=== PATIENT | male | born 1955 | race Caucasian/White ===

== ENCOUNTER 2016-07-09 09:24 | Emergency (ER) | payer OTHER ==
[~2016-07-09] VITALS: Ht 182.9 cm; Wt 104.0 kg
[~2016-07-09 09:24] MED LIST: BENAZEPRIL HCL40 MG PO; LANTUS 10100 UNITS/ SC; LEVOTHYROXINE100 MCG PO; NOVOLOG 10100 UNITS/ SC; PERCOCET 5/31 TABLET PO; PRAVASTATIN SOD40 MG PO; VERAPAMIL HCL120 M1 PO
[2016-07-09] MEDS ORDERED: NAPROXEN500 MG PO (11:07)
[2016-07-09 11:30] VITALS: BP 146/60
== END 2016-07-09 11:34 | disposition home or self-care (01) ==
LOC: EME 09:24
DX: S83.422A Sprain of lateral collateral ligament of left knee, initial encounter (principal); S93.402A Sprain of unspecified ligament of left ankle, initial encounter; Z96.652 Presence of left artificial knee joint; W18.30XA Fall on same level, unspecified, initial encounter
CPT/HCPCS: 73564; 73590; 73610; 99281; 99284; J1885